=== PATIENT | female | born 1995 | race Caucasian/White ===

== ENCOUNTER 2016-05-26 21:05 | Emergency (ER) | payer OTHER ==
[~2016-05-26] VITALS: Ht 162.6 cm; Wt 103.1 kg
[~2016-05-26 21:05] MED LIST: KEFLEX500 MG PO; NABUMETONE750 MG PO; NAPROSYN500 MG PO; PHENERGAN12.5 M1 PO; TYLENOL/CODE1 TABLET PO; VICKS DAYQUIL1 EACH PO; VICKS NYQUIL PO; ZYRTEC10 M4 PO
[2016-05-26] MEDS ORDERED: AUGMENTIN875 MG PO (22:37)
[2016-05-26 22:48] VITALS: BP 136/95
== END 2016-05-26 22:49 | disposition home or self-care (01) ==
LOC: EXP 21:05 → EME 21:05 → EXP 22:49
DX: J01.90 Acute sinusitis, unspecified (principal); J22 Unspecified acute lower respiratory infection
CPT/HCPCS: 99281; 99284

== ENCOUNTER 2017-03-09 23:07 | Emergency (ER) | payer OTHER ==
[~2017-03-09] VITALS: Ht 162.6 cm; Wt 100.7 kg
[~2017-03-09 23:07] MED LIST changes: +AUGMENTIN875 MG PO
[2017-03-09 23:51] LABS: HEMATOCRIT 39.7 % (36.0-46.0); HEMOGLOBIN 13.9 G/DL (11.9-15.5); MCV 85.7 FL (83-99); PLATELET COUNT 270 K/uL (156-360); RBC DIS.WIDTH-CV 11.9 % (11.8-14.6); RED BLOOD COUNT 4.63 M/uL (3.80-5.20); WHITE BLOOD COUNT 5.9 K/uL (4.1-10.2)
[2017-03-10 00:01] LABS: CHLORIDE 108 mEq/L (99-109); POTASSIUM 3.6 mEq/L (3.7-5.4); SODIUM 138 mEq/L (136-147)
[2017-03-10 00:02] LABS: GLUCOSE 104 mg/dL (70-99)
[2017-03-10 00:06] LABS: CREATININE 0.8 mg/dL (0.6-1.3); GFR ESTIMATE (CALCULATED) > 59 mL/min/
[2017-03-10 00:07] LABS: UREA NITROGEN (BUN) 8 mg/dL (9-23)
[2017-03-10 01:08] VITALS: BP 135/83
[2017-03-11] MEDS ORDERED: ZOFRAN ODT4 MG PO (04:11)
[2017-03-11] MEDS ORDERED: MOTRIN800 MG PO (04:11)
[2017-03-11] MEDS ORDERED: REGLAN10 MG PO (04:15)
== END 2017-03-10 01:15 | disposition home or self-care (01) ==
LOC: EME 23:07
PROVIDERS: Nurse Practitioner Family
DX: J10.1 Influenza due to other identified influenza virus with other respiratory manifestations (principal); J06.9 Acute upper respiratory infection, unspecified; E86.0 Dehydration; J30.9 Allergic rhinitis, unspecified
CPT/HCPCS: 80048; 85027; 99281; 99285; J1885; J2405; J7030

== ENCOUNTER 2017-03-11 01:11 | Emergency (ER) | payer OTHER ==
[~2017-03-11] VITALS: Ht 162.6 cm; Wt 101.3 kg
[2017-03-11 02:34] LABS: CHLORIDE 109 mEq/L (99-109); POTASSIUM 3.8 mEq/L (3.7-5.4); SODIUM 139 mEq/L (136-147)
[2017-03-11 02:36] LABS: GLUCOSE 122 mg/dL (70-99)
[2017-03-11 02:40] LABS: CREATININE 0.8 mg/dL (0.6-1.3); GFR ESTIMATE (CALCULATED) > 59 mL/min/; UREA NITROGEN (BUN) 4 mg/dL (9-23)
[2017-03-11] MEDS ORDERED: ZOFRAN ODT4 MG PO (04:11)
[2017-03-11] MEDS ORDERED: MOTRIN800 MG PO (04:11)
[2017-03-11] MEDS ORDERED: REGLAN10 MG PO (04:15)
[2017-03-11 05:24] VITALS: BP 123/87
== END 2017-03-11 05:25 | disposition home or self-care (01) ==
LOC: EME 01:11
PROVIDERS: Emergency Medicine
DX: J11.1 Influenza due to unidentified influenza virus with other respiratory manifestations (principal); Z88.8 Allergy status to other drugs, medicaments and biological substances
CPT/HCPCS: 80048; 99281; 99284; J1885; J2405; J2765; J7030